=== PATIENT | female | born 1960 | race Caucasian/White ===

== ENCOUNTER 2016-07-11 05:59 | Day surgery (SDC) | payer OTHER ==
[~2016-07-11] VITALS: Ht 160 cm; Wt 61.8 kg
[~2016-07-11 05:59] MED LIST: ATEN-51 PO; CEPH500C PO; LORA10TA3 PO
[2016-07-11] MEDS ORDERED: AMIT25TA9 PO (06:34)
[2016-07-11] MEDS ORDERED: PRAV40TA76 PO (06:34)
[2016-07-11] MEDS ORDERED: LINA145C PO (06:34)
[2016-07-11 06:35] VITALS: Ht 160 cm; Wt 61.8 kg
[2016-07-11 07:30] VITALS: BP 168/93; PULSE 78; RESP 21
[2016-07-11] MEDS ORDERED: MIDAZOLAM 1 MG/ML 2 ML INJ ONE ×2 (08:39)
[2016-07-11] MEDS ORDERED: FENTAnyl 50 MCG/ML VIAL ONE (08:39)
[2016-07-11 08:42] VITALS: BP 143/78; RESP 20
--- NOTE | 2016-07-11 21:56 | GILP ---
DATE OF PROCEDURE: 07/11/2016 NAME OF PROCEDURE: Colonoscopy. SURGEON: Diana Hassan MD PREOPERATIVE DIAGNOSIS: Screening colonoscopy. POSTOPERATIVE DIAGNOSES 1. Colonoscopy all the way to the cecum. 2. Internal hemorrhoids. 3. No colon neoplasm was identified. INDICATION FOR THE PROCEDURE: Ms. Jackeline Barnard is a 56-year-old female patient who was sched uled for screening colonoscopy. The procedure and possible complications were well explained to the patient. She understood and con sented to the procedure. DESCRIPTION OF PROCEDURE: Under the influence of fentanyl and Versed, the colonoscope was carefully introduced into the rectum and under direct vision, was advanced all the way to the cecum. FINDINGS: The patient had internal hemorrhoids. No colon neoplasm was identified. She tolerated the procedure very well, and there were no complications from the procedure. At the e nd of the procedure, she was awake with stable vital signs, and she was discharged home to the care of her family. IMPRESSION: 1. Colonoscopy all the way to the cecum. 2. Internal hemorrhoids. 3. No colon neoplasm was identified. PLAN: 1. Continue Linzess for constipation. 2. Next screening colonoscopy in 10 years. Dictated By: DIANA CRAMER/CONSTANTINE Conf#: [id number] DID#: [id number] CC: DIANA HASSAN MD;*[facility]*
== END 2016-07-11 11:37 | disposition home or self-care (01) ==
LOC: GIL 05:59
PROVIDERS: ATTEND Internal Medicine Gastroenterology
DX: Z12.11 Encounter for screening for malignant neoplasm of colon (principal); K64.8 Other hemorrhoids; I10 Essential (primary) hypertension
CPT/HCPCS: 45378; J2250; J3010; Z7610